=== PATIENT | female | born 1980 | race African-American/Black ===

== ENCOUNTER 2016-10-25 12:27 | Emergency (ER) | payer BC, OTHER ==
[~2016-10-25] VITALS: Ht 165.1 cm; Wt 76.0 kg
[2016-10-25 13:09] VITALS: Ht 165.1 cm; Wt 76.0 kg
[2016-10-25] MEDS ORDERED: ONDANSETRON 4 MG INJ IV STA (15:02)
[2016-10-25] MEDS ORDERED: KETOROLAC 30 MG INJ IV STA (15:02)
--- NOTE | 2016-10-25 15:02 | ERD ---
ER Documentation Chief Complaint Date/Time DATE: 10/25/16 TIME: 14:55 Chief Complaint flank pain hx of bilat kidney stones HPI 36 y/o female presents to ED for bilateral flank pain for about 1-1/2 week. Was [place] emergency room department last October 04, 2016 and discharged with final diagnosis of kidney stones, with a prescription of Flomax, Percocet. Her pain is increased for the past 2 days. Denies headache, loss of consciousness, dizziness, blurry vision, changes in vision, photophobia, facial pain, ear pain, throat pain, difficulty swallowing, neck pain, shoulder pain, chest pain, cough, hemoptysis, abdominal pain, back pain, loss of appetite, nausea, vomiting, hematochezia, diarrhea, constipation, , the possibility of being , bladder and bowel incontinences, extremity weakness, extremity tenderness, numbness or tingling sensation, difficulty walking, recent travel, recent exposure to illness, recent antibiotic use in the last 3 months, fever, chills. Allergy: NKA PMH: Kidney stones Family medical history: AO LMP: Unable to obtain Medications: Percocet, Flomax. Surgery: Right knee surgery. Primary Social History: Denies Smokes 4 sticks of cigarettes a day. Denies use of alcohol, use of illegal drugs. ROS All systems reviewed and are negative except as per history of present illness. Medications Home Meds Active Scripts Tamsulosin Hcl* (Flomax*) 0.4 Mg Cap.er.24h, 0.4 MG PO DAILY, #30 CAP Prov:PURVI ROJO F 10/25/16 Oxycodone HCl/Acetaminophen (Percocet 5-325 mg Tablet) 1 Each Tablet, 1 EACH PO every 4 hours Y for PAIN, #10 TAB Prov:PURVI ROJO F 10/25/16 Ondansetron (Ondansetron Odt) 4 Mg Tab.rapdis, 4 MG PO Q6H Y for NAUSEA AND/OR VOMITING, #10 TAB Prov:LILAILABANPURVI F 10/25/16 Allergies Allergies: Coded Allergies: No Known Allergy (Unverified , 10/25/16) PMhx/Soc Medical and Surgical Hx: pt denies Surgical Hx Hx Miscellaneous Medical Probl: Yes (KIDNEY STONE) Physical Exam Vitals Vital Signs Date Time Temp Pulse Resp B/P Pulse Ox O2 Delivery O2 Flow Rate FiO2 10/25/16 13:09 98.9 104 18 139/68 99 Physical Exam CONSTITUTIONAL: Well-appearing; well-nourished; in no apparent distress. HEAD: Normocephalic; atraumatic. EYES: Conjunctiva clear, sclera non-icteric, EOM intact. PERRL Ears: Hearing intact. EACs clear, TMs non-bulging, non-inflamed, translucent & mobile, ossicles normal appearance, No obstructions, no erythema, no discharges Nose: No obstructions. No polyps. No external lesions. Mucosa non-inflamed. No external lesions, septum and turbinates normal. No rhinorrhea. No discharges. Frontal sinus is non-tender to palpation. Maxillary sinus is non-tender to palpation. MOUTH: Moist mucous membranes, no lesion, no obstructions, no vesicles, no thrush, patent airway Throat: Uvula in midline. Right tonsil is +1 with no erythema, no exudate. Left tonsil is +1 with no erythema, no exudate. Tolerating secretions well. Good gag reflex. Patent airway. Neck: Supple, without lesions, bruits, or adenopathy. No mass. Thyroid non- enlarged and non-tender to palpation. CHEST: Symmetrical chest. Respirations even and not labored. No retractions noted. CARDIOVASCULAR: Normal S1, S2. RRR. No murmurs, gallops. RESPIRATORY: Normal chest excursion with respiration; breath sounds clear and equal bilaterally; no wheezes, rhonchi, or rales. Breathing even and unlabored. Speaking in clear, full, and complete sentences w/ ease. ABDOMEN: Normal bowel sounds normal. Soft, round, non-distended, non-guarding, no tenderness, no rebound, no organomegaly, no masses, no pulsating abdominal mass. No hernia. No peritoneal signs. : No CVA tenderness. BACK: Symmetrical shoulder. Spine is midline without deformity, tenderness. No evidence of trauma or deformity. PELVIS: Stable pelvis. No evidence of trauma or deformity. MUSCULOSKELETAL: Normal gait and station. No misalignment, asymmetry, crepitation, defects, tenderness, masses, effusions, decreased range of motion, instability, atrophy or abnormal strength or tone in the head, neck, spine, ribs , pelvis or extremities. No calf tenderness. NEUROVASCULAR: Distal pulses are present. Pedal pulse are present, equal, and normal. Capillary refills are < 2 seconds. NEUROLOGIC: Alert and oriented x4. Speaks full and clear sentences. Cranial Nerves II-XII normal. Sensation to pain, touch, and proprioception normal. Grossly unremarkable. No neurologic deficits. Romberg test is negative. PSYCHOLOGICAL: The patients mood and manner are appropriate. No hallucinations , delusions. Not SI. Not HI. Has the capacity to decide for self SKIN: Normal for age and ethnicity; warm; dry; good turgor; no apparent lesions or exudates. No rashes, hives, discoloration. Intact. Result Diagram: 10/25/16 1520 10/25/16 1520 Results 24 hrs Laboratory Tests Test 10/25/16 15:20 10/25/16 15:40 Alanine Aminotransferase (ALT/SGPT) 50IU/L Albumin 3.9g/dl Albumin/Globulin Ratio 1.25 Alkaline Phosphatase 121IU/L Anion Gap 18 Aspartate Amino Transf (AST/SGOT) 39IU/L Basophils # 0.010^3/ul Basophils % 0.4% Blood Urea Nitrogen 13mg/dl Calcium Level 9.4mg/dl Carbon Dioxide Level 22mmol/L Chloride Level 104mmol/L Creatinine 0.59mg/dl Direct Bilirubin 0.00mg/dl Eosinophils # 0.110^3/ul Eosinophils % 1.7% Globulin 3.10g/dl Glucose Level 259mg/dl Hematocrit 40.3% Hemoglobin 13.3g/dl Indirect Bilirubin 0.1mg/dl Lipase 78U/L Lymphocytes # 1.610^3/ul Lymphocytes % 23.3% Mean Corpuscular Hemoglobin 29.6pg Mean Corpuscular Hemoglobin Concent 33.0g/dl Mean Corpuscular Volume 89.8fl Mean Platelet Volume 8.8fl Monocytes # 0.710^3/ul Monocytes % 10.0% Neutrophils # 4.610^3/ul Neutrophils % 64.6% Nucleated Red Blood Cells # 0.010^3/ul Nucleated Red Blood Cells % 0.0/100WBC Platelet Count 90179^3/UL Potassium Level 4.2mmol/L Red Blood Count 4.4910^6/ul Red Cell Distribution Width 12.6% Sodium Level 140mmol/L Total Bilirubin 0.1mg/dl Total Protein 7.0g/dl White Blood Count 7.110^3/ul Urine Bilirubin NEGATIVE Urine Clarity CLEAR Urine Color LT. YELLOW Urine Glucose >=1000% Urine Hemoglobin NEGATIVE Urine Ketones NEGATIVE Urine Leukocyte Esterase NEGATIVE Urine Nitrite NEGATIVE Urine Specific [place] 1.025 Urine Total Protein NEGATIVE Urine Urobilinogen 0.2 E.U./dL Urine pH 5.5 Current Medications Medications (Trade) Dose Ordered Sig/Jessica Route PRN Reason Start Time Stop Time Status Last Admin Dose Admin Sodium Chloride (NS) 1,000 ml @ 1,000 mls/hr Q1H ONCE IV 10/25/16 15:30 10/25/16 16:29 DC 10/25/16 15:31 Ketorolac Tromethamine (Toradol) 60 mg ONCE STAT IV 10/25/16 15:02 10/25/16 15:08 DC 10/25/16 15:47 Ondansetron HCl (Zofran Inj) 4 mg ONCE STAT IV 10/25/16 15:02 10/25/16 15:08 DC 10/25/16 15:30 Procedures/MDM Examination: Unremarkable examination except Disease process, medical treatment was explained to the patient and family member. They verbalized understanding and agreed with the diagnostic tests, medical treatment, and follow-up care. Radiology: CT of the abdomen and pelvis: Revealed kidney stones. Blood works unremarkable elevated blood glucose. POC urine : Negative Urinalysis: Reviewed Treatment: IV insertion. Normal saline 1 L bolus. Zofran 4 mg IV. Toradol 60 mg IV. Re-evaluation: Relieve the pain. Unremarkable physical examination. Consultation: None Differential diagnosis: Kidney stones versus pyelonephritis versus dysuria versus urinary tract infection Case, diagnostic tests, medical management, follow-up care was discussed with Dr. Rodrick Castro, who his advice was to discharge patient with pain control and advised the patient to see her primary care physician as soon as possible for her diabetes of new onset. Medical decision makin36 y/o female presents to ED for bilateral flank pain for about 1-1/2 week. Was [place] emergency room department last October 04, 2016 and discharged with final diagnosis of kidney stones, with a prescription of Flomax, Percocet. Her pain is increased for the past 2 days. Patient's complaint, my physical findings, diagnostic test results are consistent with my final diagnosis of kidney stones and no onset of diabetes. Plan to the patient importance of seeing her urologist as soon as possible. She was also explained the importance of her seeing her primary care physician as much as possible tomorrow to treat her new onset diabetes. Medications prescribed are the following: Flomax, Percocet Patient and family member are made aware of the side effects and adverse reactions of the medications prescribed. Instructed on when to seek emergent and medical attention in case allergic/anaphylactic reactions or severe side effects and or adverse reactions to medications. Patient and family member verbalized understanding. Patient instructed Instructed to follow-up with his PCP in 24-48 hours. Follow-up with urologist in the next 24-48 hours. Instructed to Call 911 for chest pain, shortness of breath. Advised to come back here in ED as soon as possible for severity of symptoms which includes but not limited to: any new symptoms; shortness of breath/difficulty of breathing; cardiovascular changes; severe gastrointestinal symptoms; signs and symptoms of bleeding and or infection; signs of compartment syndrome/neurovascular changes; neurological changes/deficits. Patient and family member verbalized understanding. Upon discharge, patient is alert and oriented x 4, speaks full and clear sentences, denies pain, has no neurological deficits, has no neurovascular deficits, difficulty of breathing. Breathing even and unlabored. Lung sounds are clear to auscultation. Not in distress. Appears comfortable. Ambulatory with steady gait. Appears satisfied with care provided here in ED. Departure Diagnosis: Primary Impression: Kidney stone Additional Impression: Diabetes mellitus, new onset Condition: Good Additional Instructions: Follow-up with PCP in the next 24-48 hours. Follow-up with urologist in the next 24-48 hours. PURVI ROJO Oct 25, 2016 15:02
[2016-10-25] MEDS ORDERED: SOD CHLORIDE 0.9% 1,000 ML IV ONE (15:30)
[2016-10-25 15:53] LABS: ALBUMIN 3.9 g/dl (3.3-4.9); POTASSIUM 4.2 mmol/L (3.5-5.1)
[2016-10-25 15:54] LABS: BASOPHILS % 0.4 % (0.0-2.0); EOSINOPHILS # 0.1 10^3/ul (0.0-0.5); EOSINOPHILS % 1.7 % (0.0-7.0); HEMATOCRIT 40.3 % (37.0-47.0); HEMOGLOBIN 13.3 g/dl (12.0-16.0); LYMPHOCYTES # 1.6 10^3/ul (0.8-2.9); LYMPHOCYTES % 23.3 % (15.0-51.0); MEAN CORPUSCULAR HEMOGLOBIN 29.6 pg (29.0-33.0); MEAN CORPUSCULAR VOLUME 89.8 fl (82.0-101.0); MEAN PLATELET VOLUME 8.8 fl (7.4-10.4); MONOCYTE # 0.7 10^3/ul (0.3-0.9); NEUTROPHIL # 4.6 10^3/ul (1.6-7.5); NEUTROPHILS % 64.6 % (39.0-77.0); PLATELET COUNT 368 10^3/UL (140-440); RED BLOOD COUNT 4.49 10^6/ul (4.20-5.40); RED CELL DISTRIBUTION WIDTH 12.6 % (11.5-14.5); UNCORRECTED WBC 7.1 10^3/ul (4.8-10.8); WHITE BLOOD COUNT 7.1 10^3/ul (4.8-10.8)
[2016-10-25 15:55] LABS: BILIRUBIN,INDIRECT 0.1 mg/dl (0-1.1); BILIRUBIN,TOTAL 0.1 mg/dl (0.2-1.3); CREATININE 0.59 mg/dl (0.44-1.00)
[2016-10-25 15:56] LABS: ALBUMIN/GLOBULIN RATIO 1.25; CALCIUM 9.4 mg/dl (8.4-10.2); CONDITION 1
[2016-10-25 16:08] LABS: ADD UMIC NO; URINE BILIRUBIN (Dip) NEGATIVE (NEGATIVE); URINE BLOOD (Dip) NEGATIVE (NEGATIVE); URINE COLOR LT. YELLOW (YELLOW); URINE GLUCOSE (Dip) >=1000 % (NEGATIVE); URINE KETONES (Dip) NEGATIVE (NEGATIVE); URINE LEUKOCYTE ESTERASE (Dip) NEGATIVE (NEGATIVE); URINE NITRITE (Dip) NEGATIVE (NEGATIVE); URINE TOTAL PROTEIN (Dip) NEGATIVE (NEGATIVE); URINE UROBILINOGEN (Dip) 0.2 E.U./dL (0.1-1.0)
--- NOTE | 2016-10-25 16:38 | RADRPT ---
PROCEDURE: CT abdomen and pelvis without IV contrast CLINICAL INDICATION: Flank pain TECHNIQUE: Axial images were obtained through the abdomen and pelvis without IV contrast. Coronal and sagittal reconstructions were obtained. Automated exposure control was utilized. DLP = 802.1 m Gy-cm. CTDiol= 14.9 mGy. COMPARISON: none available FINDINGS: The visualized lower lungs are clear. Heart size is within normal limits. Mild elevation of the right hemidiaphragm is identified. The liver, gallbladder, pancreas, spleen a nd adrenals have an unremarkable noncontrast appearance. A few scattered nonobstructing stones measuring up to approximately 3 mm are identified in the left kidney. A few small nonobstructing stones measuring up to 2 mm are identified in the right kidney. Mild high attenuation of the papillae and medullary regions of both kidneys is identified. No obst ructive uropathy is identified. The bladder is filled with a small amount of urine. T-shaped IUD is identified in the uterus. IUD appears to be located low in the uterus and may extend into the cervical canal. The IUD also appears to be rotated. Air and stool are seen scattered within the colon. [id number] amount of formed stool is seen in the right colon and transverse colon. A few distal left colon diverticula are observed. The ap pendix is normal. No dilated loops of small bowel are observed. The stomach and duodenum are unrem arkable. No intra-abdominal or pelvic free fluid or fluid collections are observed. No intra-abdominal or pe lvic lymphadenopathy is observed. The arterial vasculature demonstrates a normal appearance. Osseous structures are intact and normal-appearing. Subcutaneous and muscular soft tissues surround ing the abdomen and pelvis are unremarkable. IMPRESSION: Limited evaluation for intra-abdominal inflammatory processes without IV contrast. If there is clin ical concern for a intra-abdominal inflammatory process repeat exam with IV contrast is recommended. Small, nonobstructing bilateral renal stones. Mildly high attenuation in the papillae and medullary regions of both kidneys. Finding suggest medul cheryl nephrocalcinosis. T-shaped IUD in the uterus. The IUD appears to be located low in the uterus and may extend to the ce rvical canal. IUD also appears to be rotated. If further characterization is needed ultrasound cou ld be helpful. Moderate to large amount of formed stool in the right colon and transverse colon. Finding may refle ct constipation. Colonic diverticulosis. RPTAT: AA .Brendan Rausch MD, MD Date Time Electronically viewed and signed by .Brendan Rausch MD, MD on 10/25/2016 16:37 .P/
[2016-10-25] MEDS ORDERED: ONDA4TAB14 PO (17:19)
[2016-10-25] MEDS ORDERED: OXYC-279 PO (17:20)
[2016-10-25] MEDS ORDERED: TAMS-14 PO (17:21)
== END 2016-10-25 17:45 | disposition home or self-care (01) ==
LOC: FTE 12:27
DX: N20.0 Calculus of kidney (principal); E11.9 Type 2 diabetes mellitus without complications; F17.210 Nicotine dependence, cigarettes, uncomplicated
CPT/HCPCS: 74176; 80053; 81003; 83690; 85025; J1885; J2405; J7030; 96374; 96375